=== PATIENT | male | born 1945 | race Caucasian/White ===

== ENCOUNTER → 2016-06-20 | Outpatient (CLI) | payer MEDICARE ==
--- NOTE | 2016-06-20 09:34 | REP ---
Clinical: Preoperative assessment . Comparison: 06/17/2010 . Technique: PA and lateral. Findings: The mediastinum and cardiac silhouette are stable and within normal limits. The lung oneil demonstrate mild chronic basilar changes without acute consolidation, effusion, or pneumothorax. The skeletal structures are intact and normal. Impression: 1. No acute cardiopulmonary process. Signed by Jaden Ridley MD 06/20/2016 09:27 A
[2016-06-20 09:50] LABS: COLLAGEN ADP 128 SECONDS (56-103)
[2016-06-20 09:56] LABS: ALBUMIN 3.9 GM/DL (3.2-5.2); ALBUMIN/GLOBULIN RATIO 1.18 (1.00-1.93); ALKALINE PHOSPHATASE 53 U/L (45-117); ALT/SGPT 29 U/L (12-78); ANION GAP 9 MEQ/L (8-16); AST/SGOT 21 U/L (15-37); BILIRUBIN,TOTAL 0.8 MG/DL (0.2-1.0); BLOOD UREA NITROGEN 12 MG/DL (7-18); CALCIUM LEVEL 9.1 MG/DL (8.8-10.2); CARBON DIOXIDE LEVEL 28 MEQ/L (21-32); CHLORIDE LEVEL 104 MEQ/L (98-107); CREATININE FOR GFR 0.83 MG/DL (0.70-1.30); GLOMERULAR FILTRATION RATE > 60.0 (>42); GLUCOSE, FASTING 94 MG/DL (83-110); POTASSIUM SERUM 4.3 MEQ/L (3.5-5.1); SODIUM LEVEL 141 MEQ/L (136-145); TOTAL PROTEIN 7.2 GM/DL (6.4-8.2)
--- NOTE | 2016-06-20 16:29 | ECGEPIP ---
Stationary ECG Study [facility] Test Date: 2016-06-20 Pat Name: KOTA MONTGOMERY Department: Room: - Gender: M Channel Rebuilder: LV : 1945 Requested By: LIDYA Benites Order Number: [id number] Reading MD: Pavan Mclaughlin Measurements Intervals [place] Rate: 56 P: 19 FL: 171 QRS: -3 QRSD: 106 T: 25 QT: 419 QTc: 406 Interpretive Statements SINUS BRADYCARDIA NO PRIOR TRACING FOR COMPARISON Electronically Signed On 06-20-2016 16:29:40 EST by Pavan Mclaughlin
== END ==
LOC: M LAB 08:29
PROVIDERS: ATTEND Ophthalmology
DX: H25.11 Age-related nuclear cataract, right eye (principal)

== ENCOUNTER → 2016-07-07 | Day surgery (SDC) | payer MEDICARE ==
--- NOTE | 2016-06-29 21:31 | CR ---
DATE OF CONSULTATION: 06/27/[address] Nickerson: Thank you for asking me to see Mr. Seth Carlson in consultation prior to his left cataract surgery scheduled for 07/07/2016. As you know, Mr. Seth Carlson is a 70-year-old gentleman, past medical history of hypertension, asthma, osteoarthritis (OA), degenerative joint disease (DJD), who reports he has been in his usual state of health. Patient reports asthma has been slightly worse with the cold weather, as it usually is. He is using his Symbicort twice a day. Has not felt that he has required the use of the ProAir. He denies any fevers or chills. Denies any congestion. Allergy symptoms have been good. He has not required the use of his Flonase, cetirizine, or saline. Patient reports severe left ankle pain after stepping wrong on his ankle and twisting. He saw Dr. Luis. He was ready to proceed with surgical intervention, but Dr. Luis felt he should seek treatment elsewhere because of the complexity of the surgery required. He has been referred into Dr. Ortiz 07/11/2016 and has had some improvement in his symptoms, such that he is no longer needing to use a cane. Patient also reports some difficulties with right shoulder pain. He has had previous problems with left shoulder pain, which was ultimately felt to be related to his back and neck. He reports that a week before , he was golfing when he had sudden onset of acute pain. It has improved at this point, and he would like to hold off on further evaluation/treatment at this point. Patient reports significant decline in his right eye vision over the last 6 months while he has been waiting for cataract surgery. He is eager to proceed. Patient also reports concerns about family history of Alzheimer's. 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 REVIEW OF SYSTEMS: Otherwise, negative. Denies any fevers or chills, chest pain, or shortness of breath. PAST MEDICAL HISTORY: 1. Hypertension, diet controlled. 2. Hyperlipidemia. 3. Allergic rhinitis. 4. Asthma. Last spirometry 12/31 essentially normal. 5. Hypothyroidism. 6. Dyslipidemia. 7. Right thumb amputation. 8. Colonic tubular adenoma, status post transanal resection 03/2001 with last colonoscopy 07/19/2012. No pathology except diverticulosis. 9. OA/DJD, status post right total knee arthroplasty (TKA) times two with partial knee replacement 06/2007. Advanced left ankle surgery, full joint replacement recommended. 10. Osteopenia 2007 with thoracic compression fracture. 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 12. Spermatocele right testis 1.9 x 1.3 cm per ultrasound 10/01. MEDICATIONS: - baby aspirin daily - calcium plus magnesium daily - cetirizine 10 mg as needed - fluticasone as needed - glucosamine chondroitin daily - krill oil daily - levothyroxine 175 mcg daily - multivitamin daily - ProAir two puffs four times a day as needed - saline spray as needed - Symbicort two puff twice a day as needed - vitamin D3, 1000 international units daily - vitamin E daily DRUG ALLERGIES: None. 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 Never smoked. Alcohol 5-6 beers a week. FAMILY HISTORY: Father had lymphoma, Alzheimer's disease. Paternal aunt and uncle had Alzheimer's disease. His mother secondary to cancer. A brother has diabetes. A grandfather had lung cancer. PHYSICAL EXAM: No acute distress. VITAL SIGNS: Are weight 180, which is stable, with a body mass index (BMI) of 28. Blood pressure 148/88, recheck 138/84. His pulse is 80. His oxygen saturations have been 98% in this office in the last year. HEENT EXAM: Head is normocephalic. Neck is supple. Pupils equal, reactive to light. Extraocular movements are intact. No thyromegaly, jugular venous distention (JVD), or cervical lymphadenopathy. He does wear eyeglasses. RESPIRATORY: Clear to auscultation. Resonant to percussion. CARDIOVASCULAR: Regular rate, rhythm. He is bradycardic. He has no additional beats. No murmurs, rubs, or gallops. ABDOMEN: Soft, nontender. No hepatosplenomegaly. EXTREMITIES: Partial amputation right thumb. Well-healed right knee incision. OA changes, particularly at the distal interphalangeal (DIP) joints. Bilateral ankle bony enlargement. OA changes at the DIP joints. GENITOURINARY (): Is deferred to urology. DERMATOLOGIC: Multiple small matthews angiomas. LABORATORY DATA: Chest x-ray 06/20/2016 [facility] ([facility]) shows no acute cardiopulmonary process. EKG 06/20/2016 shows sinus bradycardia, rate of 56, axis of -3 degrees, normal R wave progression, some repolarization changes, borderline left atrial enlargement (LAE). No ventricular hypertrophy. No pathologic Q waves. No significant change compared to EKG 04/04/2016. Laboratory data [facility] 06/20/2016 shows a normal hemoglobin of 14.7. Normal med profile, lipid panel. Elevated platelet function studies consistent with possible drug effect, and patient admits he was doing krill oil, vitamin E, aspirin, glucosamine chondroitin. IMPRESSION: Mr. Seth Carlson, 70-year-old gentleman with cardiovascular risk factors positive for hypertension, hyperlipidemia, age, has no signs or symptoms indicative of cardiovascular ischemia, and is felt to be optimized and at low risk for cardiovascular complications from the proposed surgical intervention, which can be further minimized by the followin. Hypertension, diet controlled. Commended for efforts. Encouraged to continue diet, exercise, salt restriction. 2. Asthma. In an attempt to avoid asthma exacerbation in the winter, I have asked him to do his ProAir twice a day before Symbicort until surgery. He is up to date with flu shot. Encouraged patient to take ProAir and Symbicort morning of surgery. 3. Allergic rhinitis, clinically asymptomatic. Encouraged use of as-needed medications as needed. 4. Osteopenia. Hold calcium and D morning of surgery. 5. Adenomatous colonic polyps. Up to date with colonoscopy. Clinically asymptomatic. 6. Testicular microlithiasis. Encouraged followup with urology. 7. Hypothyroid. Last thyroid-stimulating hormone (TSH) adequate. Continue Levoxyl, including morning of surgery with a sip of water. 8. Abnormal platelet function studies. Expect related to vitamin E, aspirin, krill. These are on hold until his surgery. No need for further evaluation/treatment. 9. Family history Alzheimer's. Conservative advice given. 10. Osteoarthritis/degenerative joint disease. Patient will see Dr. Ortiz regarding left ankle pain 07/11/2016. Will forward notes to me. Patient has new onset right shoulder pain. He would like to hold off further evaluation/treatment at this point. Thank you very much for this consultation. Please call with questions or concerns.
[~2016-07-07] VITALS: Ht 172.7 cm; Wt 79.4 kg
[~2016-07-07] MED LIST: ACETYLCHOLINE OPHTH SOLN 1% 2ML As Ordered ONE; ACETYLCHOLINE OPHTH SOLN 1% 2ML XX ONE; BALANCED SALT IRRIGATION SOLUTION 500ML BAG (FOR OR EYE MACHINE) As Ordered ONE; BALANCED SALT IRRIGATION SOLUTION 500ML BAG (FOR OR EYE MACHINE) XX ONE; CEFUROXIME 1MG/0.1ML INTRACAMERAL INJ As Ordered ONE; CEFUROXIME 1MG/0.1ML INTRACAMERAL INJ XX ONE; HEALON DUET (HEALON 10MG/ML 0.55ML & HEALON ENDOCOAT 30MG/ML 0.85ML) As Ordered ONE; LEVO25TA5 PO; LIDOCAINE 0.75%/EPINEPHRINE 0.025% IN BSS 1ML SYR INTRACAMERAL (OR ONLY) As Ordered ONE; LIDOCAINE 0.75%/EPINEPHRINE 0.025% IN BSS 1ML SYR INTRACAMERAL (OR ONLY) XX ONE; LIDOCAINE 4% INJ 5 ML AMP OU ONE; MIDAZOLAM INJ 2 MG/2 ML VIAL (J2250) As Ordered ONE; OFLOXACIN 0.3 % (OCUFLOX) OPTH SOL 5ML OD ONE; OFLOXACIN 0.3 % (OCUFLOX) OPTH SOL 5ML XX ONE; PHENYLEPHRINE 2.5% OPHTH SOL 2ML OD ONE; PHENYLEPHRINE 2.5% OPHTH SOL 2ML XX ONE; POVIDONE-IODINE 5% OPHTH PREP SOL 30ML As Ordered ONE; PROPARACAINE 0.5% OPHTH SOL 15ML OD ONE; PROPARACAINE 0.5% OPHTH SOL 15ML XX ONE; TOBRADEX OPHTH OINT 3.5 GM As Ordered ONE; TROPICAMIDE 1% OPHTH SOLN 2 ML OD ONE; TROPICAMIDE 1% OPHTH SOLN 2 ML XX ONE; fentaNYL 100 MCG/2 ML INJECTION (J3010) As Ordered ONE
[2016-07-07 13:05] VITALS: BP 174/96
--- NOTE | 2016-07-08 07:33 | RO ---
DATE OF PROCEDURE: 07/07/2016 PREOPERATIVE DIAGNOSIS: Visually significant nuclear sclerotic cataract right eye. POSTOPERATIVE DIAGNOSIS: Visually significant nuclear sclerotic cataract right eye. PROCEDURE: Cataract extraction with use of phacoemulsification and placement of intraocular lens 13.5 diopter right eye. SURGEON: Eduardo Nickerson DO CROWNING HAMMER OPERATOR: ANESTHESIA: Local with monitored anesthesia care (MAC). COMPLICATIONS: None. POSTOPERATIVE CONDITION: Stable. INDICATION FOR SURGERY: Blurred vision right eye affecting patient's activities of daily living. DESCRIPTION OF PROCEDURE: The patient was seen in the preoperative area and properly identified. The correct operative eye was identified and marked. Attention was turned to that eye. The patient received topical antibiotics in the preoperative area. The patient then received topical dilating drops consisting of tropicamide and phenylephrine. The patient was then transferred to the operating room. The correct side was reidentified. The patient received topical anesthetics and antibiotics on the surface of the eye. The eye was prepped and draped in a sterile fashion. The upper and lower eyelids were isolated with Tegaderm tape, and the lids were held open with an adjustable speculum. Using a sideport blade, a paracentesis incision was made. Intraocular preservative-free lidocaine was then injected into the anterior chamber. Viscoelastic was then injected into the anterior chamber through the paracentesis. Using a 2.65 mm sharp-tipped keratome, the anterior chamber was entered via a temporal clear corneal incision. A continuous curvilinear capsulorrhexis was created with the aid of a 26-gauge cystotome and Utrata forceps. Hydrodissection was performed with balanced salt solution (BSS) on a blunt cannula until the nucleus was freely mobile. The crystalline lens was phacoemulsified and aspirated. Additional cohesive viscoelastic was placed into the capsular bag to deepen it. A 13.5 diopter lens was placed into the capsular bag and confirmed by visualizing the continuous curvilinear capsulorrhexis. Additional irrigation and aspiration was used to remove cortical material and remaining viscoelastic. The clear corneal incision was hydrated with BSS on a blunt cannula. The lens was well positioned. The incisions were then tested for leaks and found to be negative. The eye was then palpated for appropriate pressure and adjusted accordingly with BSS. Several drops of antibiotics and Iopidine were placed in the eye. The eyelid speculum was then carefully removed. Maxitrol ointment was placed in the eye. An eye patch and shield were then secured over the eye. The patient tolerated the procedure well and was discharged to the recovery unit in a stable condition. MOISES
== END | disposition home or self-care (01) ==
LOC: M SDC 10:34
PROVIDERS: ATTEND Ophthalmology
DX: H25.11 Age-related nuclear cataract, right eye (principal); I10 Essential (primary) hypertension; J45.909 Unspecified asthma, uncomplicated; E78.4 Other hyperlipidemia; E03.9 Hypothyroidism, unspecified; Z79.82 Long term (current) use of aspirin; Z79.899 Other long term (current) drug therapy; M94.9 Disorder of cartilage, unspecified
CPT/HCPCS: 36415; 66984; 85576; J2250; J3010; V2632

== ENCOUNTER 2016-07-21 06:00 | Day surgery (SDC) | payer MEDICARE ==
[~2016-07-21] VITALS: Ht 172.7 cm; Wt 79.0 kg
[~2016-07-21 06:00] MED LIST changes: -ACETYLCHOLINE OPHTH SOLN 1% 2ML As Ordered ONE; -ACETYLCHOLINE OPHTH SOLN 1% 2ML XX ONE; -BALANCED SALT IRRIGATION SOLUTION 500ML BAG (FOR OR EYE MACHINE) As Ordered ONE; -BALANCED SALT IRRIGATION SOLUTION 500ML BAG (FOR OR EYE MACHINE) XX ONE; -CEFUROXIME 1MG/0.1ML INTRACAMERAL INJ As Ordered ONE; -CEFUROXIME 1MG/0.1ML INTRACAMERAL INJ XX ONE; -HEALON DUET (HEALON 10MG/ML 0.55ML & HEALON ENDOCOAT 30MG/ML 0.85ML) As Ordered ONE; -LIDOCAINE 0.75%/EPINEPHRINE 0.025% IN BSS 1ML SYR INTRACAMERAL (OR ONLY) As Ordered ONE; -LIDOCAINE 0.75%/EPINEPHRINE 0.025% IN BSS 1ML SYR INTRACAMERAL (OR ONLY) XX ONE; -LIDOCAINE 4% INJ 5 ML AMP OU ONE; -MIDAZOLAM INJ 2 MG/2 ML VIAL (J2250) As Ordered ONE; -OFLOXACIN 0.3 % (OCUFLOX) OPTH SOL 5ML OD ONE; -OFLOXACIN 0.3 % (OCUFLOX) OPTH SOL 5ML XX ONE; -PHENYLEPHRINE 2.5% OPHTH SOL 2ML OD ONE; -PHENYLEPHRINE 2.5% OPHTH SOL 2ML XX ONE; -POVIDONE-IODINE 5% OPHTH PREP SOL 30ML As Ordered ONE; -PROPARACAINE 0.5% OPHTH SOL 15ML OD ONE; -PROPARACAINE 0.5% OPHTH SOL 15ML XX ONE; -TOBRADEX OPHTH OINT 3.5 GM As Ordered ONE; -TROPICAMIDE 1% OPHTH SOLN 2 ML OD ONE; -TROPICAMIDE 1% OPHTH SOLN 2 ML XX ONE; -fentaNYL 100 MCG/2 ML INJECTION (J3010) As Ordered ONE
[2016-07-21] MEDS ORDERED: ACETYLCHOLINE OPHTH SOLN 1% 2ML As Ordered ONE (06:29)
[2016-07-21] MEDS ORDERED: LIDOCAINE 4% INJ 5 ML AMP As Ordered ONE (06:29)
[2016-07-21] MEDS ORDERED: POVIDONE-IODINE 5% OPHTH PREP SOL 30ML As Ordered ONE (06:29)
[2016-07-21] MEDS ORDERED: TOBRADEX OPHTH OINT 3.5 GM As Ordered ONE (06:29)
[2016-07-21] MEDS ORDERED: CEFUROXIME 1MG/0.1ML INTRACAMERAL INJ As Ordered ONE (06:30)
[2016-07-21] MEDS ORDERED: HEALON DUET (HEALON 10MG/ML 0.55ML & HEALON ENDOCOAT 30MG/ML 0.85ML) As Ordered ONE (06:30)
[2016-07-21] MEDS ORDERED: BALANCED SALT IRRIGATION SOLUTION 500ML BAG (FOR OR EYE MACHINE) As Ordered ONE (06:30)
[2016-07-21] MEDS ORDERED: LIDOCAINE 0.75%/EPINEPHRINE 0.025% IN BSS 1ML SYR INTRACAMERAL (OR ONLY) As Ordered ONE (06:30)
[2016-07-21] MEDS ORDERED: TETRACAINE 0.5% OPHTH SOLN 4ML As Ordered ONE (06:32)
[2016-07-21] MEDS ORDERED: GLUC1CAP9 PO (06:46)
[2016-07-21] MEDS ORDERED: MULTTAB50 PO (06:46)
[2016-07-21] MEDS ORDERED: SYMB16INH INH (06:46)
[2016-07-21] MEDS: D5W/0.2% SODIUM CHLORIDE 250 ML IV SCH ×2 (06:53→07:53)
[2016-07-21] MEDS ORDERED: TROPICAMIDE 1% OPHTH SOLN 2 ML OS ONE (07:00)
[2016-07-21] MEDS ORDERED: OFLOXACIN 0.3 % (OCUFLOX) OPTH SOL 5ML OS ONE (07:00)
[2016-07-21] MEDS ORDERED: PHENYLEPHRINE 2.5% OPHTH SOL 2ML OS ONE (07:00)
[2016-07-21] MEDS ORDERED: PROPARACAINE 0.5% OPHTH SOL 15ML OS ONE (07:00)
[2016-07-21] MEDS ORDERED: MIDAZOLAM INJ 2 MG/2 ML VIAL (J2250) As Ordered ONE (07:05)
[2016-07-21] MEDS ORDERED: fentaNYL 100 MCG/2 ML INJECTION (J3010) As Ordered ONE (07:06)
[2016-07-21] MEDS ORDERED: ACETYLCHOLINE OPHTH SOLN 1% 2ML XX ONE (07:49)
[2016-07-21] MEDS ORDERED: CEFUROXIME 1MG/0.1ML INTRACAMERAL INJ ICAM ONE (07:49)
[2016-07-21] MEDS ORDERED: LIDOCAINE 4% INJ 5 ML AMP XX ONE (07:49)
[2016-07-21] MEDS ORDERED: HEALON DUET (HEALON 10MG/ML 0.55ML & HEALON ENDOCOAT 30MG/ML 0.85ML) XX ONE (07:49)
[2016-07-21] MEDS ORDERED: BALANCED SALT IRRIGATION SOL 500ML GLASS BOTTLE (FOR OR EYE COMPOUND) IR ONE (07:49)
[2016-07-21] MEDS ORDERED: TOBRADEX OPHTH OINT 3.5 GM XX ONE (07:49)
[2016-07-21 08:40] VITALS: BP 130/80
[2016-07-21] MEDS ORDERED: LIDOCAINE 0.75%/EPINEPHRINE 0.025% IN BSS 1ML SYR INTRACAMERAL (OR ONLY) ICAM ONE (14:03)
--- NOTE | 2016-07-21 20:29 | RO ---
DATE OF PROCEDURE: 07/21/2016 PREOPERATIVE DIAGNOSIS: Visually significant nuclear sclerotic cataract left eye. POSTOPERATIVE DIAGNOSIS: Visually significant nuclear sclerotic cataract left eye. PROCEDURE: Cataract extraction with use of phacoemulsification and placement of intraocular lens ZCB00 14.0 diopters, left eye. SURGEON: Eduardo Nickerson DO DIE LAY OUT WORKER: ANESTHESIA: Local with monitored anesthesia care (MAC). COMPLICATIONS: None. POSTOPERATIVE CONDITION: Stable. INDICATION FOR SURGERY: Blurred vision left eye affecting patient's activities of daily living. DESCRIPTION OF PROCEDURE: The patient was seen in the preoperative area and properly identified. The correct operative eye was identified and marked. Attention was turned to that eye. The patient received topical antibiotics in the preoperative area. The patient then received topical dilating drops consisting of tropicamide and phenylephrine. The patient was then transferred to the operating room. The correct side was reidentified. The patient received topical anesthetics and antibiotics on the surface of the eye. The eye was prepped and draped in a sterile fashion. The upper and lower eyelids were isolated with Tegaderm tape, and the lids were held open with an adjustable speculum. Using a sideport blade, a paracentesis incision was made. Intraocular preservative-free Shugarcaine (lidocaine with preservative free Epinephrine, compounded) was then injected into the anterior chamber. Viscoelastic was then injected into the anterior chamber through the paracentesis. Using a 2.65 mm sharp-tipped keratome, the anterior chamber was entered via a temporal clear corneal incision. A continuous curvilinear capsulorrhexis was created with the aid of a 26-gauge cystotome and Utrata forceps. Hydrodissection was performed with balanced salt solution (BSS) on a blunt cannula until the nucleus was freely mobile. The crystalline lens was phacoemulsified and aspirated. Additional cohesive viscoelastic was placed into the capsular bag to deepen it. A ZCB00 14.0 diopter lens was placed into the capsular bag and confirmed by visualizing the continuous curvilinear capsulorrhexis. Additional irrigation and aspiration was used to remove cortical material and remaining viscoelastic. The clear corneal incision was hydrated with BSS on a blunt cannula. The lens was well positioned. The incisions were then tested for leaks and found to be negative. The eye was then palpated for appropriate pressure and adjusted accordingly with BSS. The eyelid speculum was then carefully removed. Tobradex ointment was placed in the eye. An eye patch and shield were then secured over the eye. The patient tolerated the procedure well and was discharged to the recovery unit in a stable condition. MOISES
== END 2016-07-21 08:30 | disposition home or self-care (01) ==
LOC: M SDC 06:00
PROVIDERS: ATTEND Ophthalmology
DX: H25.12 Age-related nuclear cataract, left eye (principal); E03.9 Hypothyroidism, unspecified; J45.909 Unspecified asthma, uncomplicated; Z79.899 Other long term (current) drug therapy
CPT/HCPCS: 66984; J2250; J3010; V2632

== ENCOUNTER 2017-01-13 22:11 | Emergency (ER) | payer MEDICARE ==
[~2017-01-13] VITALS: Ht 170.2 cm; Wt 79.5 kg
[~2017-01-13 22:11] MED LIST changes: +GLUC1CAP9 PO; +MULTTAB50 PO; +SYMB16INH INH
[2017-01-13] MEDS ORDERED: COLA100C5 PO (22:37)
[2017-01-13] MEDS ORDERED: OXYC1TAB23 PO (22:37)
[2017-01-13] MEDS ORDERED: MIRA3350 PO (22:37)
[2017-01-14] MEDS ORDERED: LIDOCAINE 1% MDV 20ML VIAL As Ordered ONE (03:08)
[2017-01-14] MEDS ORDERED: LIDOCAINE 1% MDV 20ML VIAL SC SCH (03:15)
[2017-01-14] MEDS ORDERED: LIDOCAINE 1% SDV INJ 30 ML VIAL SC SCH (03:15)
[2017-01-14 04:14] VITALS: BP 155/94
--- NOTE | 2017-01-14 08:22 | REP ---
REASON: Trauma. COMPARISON: None. There is dorsal dislocation of the proximal interphalangeal joint of the 4th digit. There is no evidence of an associated fracture. There is soft tissue swelling. Chronic change are seen throughout the hand. IMPRESSION: Findings involving the 4th digit as described above. Signed by Osmel Loyd DO 01/14/2017 10:37 A
--- NOTE | 2017-01-14 08:23 | REP ---
REASON: Post-reduction. COMPARISON: Earlier same date. The previously described dislocation of the proximal interphalangeal joint of the 4th digit has been reduced. There is no evidence of an associated fracture. There is soft tissue swelling. Signed by Osmel Loyd DO 01/14/2017 10:37 A
== END 2017-01-14 04:16 | disposition home or self-care (01) ==
LOC: M ED 22:11
DX: S63.255A Unspecified dislocation of left ring finger, initial encounter (principal); W19.XXXA Unspecified fall, initial encounter; Y92.9 Unspecified place or not applicable; Y93.9 Activity, unspecified; Y99.9 Unspecified external cause status; I10 Essential (primary) hypertension; E03.9 Hypothyroidism, unspecified; Z79.899 Other long term (current) drug therapy

== ENCOUNTER → 2017-04-18 | Outpatient (CLI) | payer MEDICARE ==
[~2017-04-18] MED LIST changes: +COLA100C5 PO; +MIRA3350 PO; +OXYC1TAB23 PO
--- NOTE | 2017-04-18 14:00 | REP ---
TRIPLE BONE SCAN OF THE RIBS: Following the intravenous administration of 21.8 mCi of technetium 99m MDP, patient's chest is imaged in the anterior and posterior projections. There is no abnormal blood flow to any portion of the chest. Immediate blood pool and 2 hour delayed image are performed of the chest in the anterior, posterior, both anterior and posterior oblique and both lateral projections. There is no abnormal blood pooling. Delayed images show arthritic uptake at the shoulders bilaterally as well as the sternoclavicular joints and sternomanubrial joint. There is mild diffuse arthritic uptake in the spine. There is no compelling scintigraphic evidence of rib fracture or lesion. Signed by Swapnil Ma MD 04/18/2017 05:20 P
== END ==
LOC: M RAD 10:13
PROVIDERS: ATTEND Orthopaedic Surgery
DX: M47.894 Other spondylosis, thoracic region (principal); M19.011 Primary osteoarthritis, right shoulder; M25.511 Pain in right shoulder
CPT/HCPCS: 78315; A9503

== ENCOUNTER 2018-08-16 07:57 | Day surgery (SDC) | payer MEDICARE ==
[~2018-08-16] VITALS: Ht 172.7 cm; Wt 80.7 kg
[~2018-08-16 07:57] MED LIST changes: +ASPI1TAB PO; +FLON1SPR; +KRIL300C PO; +MAGN200T PO; +MULT1TAB10 PO; +NS 1,000 ML IV ONE; +VENTAER INH; +VITA100067 PO; +ZYRT10CA5 PO; +[UNRECOGNIZED DRUG - OTHER] PO
[2018-08-16] MEDS ORDERED: PROPOFOL 200 MG/20 ML VIAL As Ordered ONE (08:56)
--- NOTE | 2018-08-16 09:12 | ROOR ---
Patient Name: Seht Carlson Procedure Date: 08/16/2018 8:51 AM Date of : 1945 Age: 72 Room: [facility] Gender: Male Note Status: Finalized Procedure: Colonoscopy Indications: High risk colon cancer surveillance: Personal history of colonic polyps Providers: Jose Luis Rodríguez Jr, MD Referring MD: Shyanne HARRINGTON MD Requesting Provider: Medicines: Propofol per Anesthesia Complications: No immediate complications. Procedure: Pre-Anesthesia Assessment: - Prior to the procedure, a History and Physical was performed, and patient medications and allergies were reviewed. The patient is competent. The risks and benefits of the procedure and the sedation options and risks were discussed with the patient. All questions were answered and informed consent was obtained. Patient identification and proposed procedure were verified by the physician and the nurse in the pre-procedure area and in the procedure room. Mental Status Examination: alert and oriented. Airway Examination: normal oropharyngeal airway and neck mobility. Respiratory Examination: clear to auscultation. CV Examination: normal. ASA Grade Assessment: II - A patient with mild systemic disease. After reviewing the risks and benefits, the patient was deemed in satisfactory condition to undergo the procedure. The anesthesia plan was to use moderate sedation / analgesia (conscious sedation). Immediately prior to administration of medications, the patient was re-assessed for adequacy to receive sedatives. The heart rate, respiratory rate, oxygen saturations, blood pressure, adequacy of pulmonary ventilation, and response to care were monitored throughout the procedure. The physical status of the patient was re-assessed after the procedure. The Colonoscope was introduced through the anus and advanced to the cecum, identified by appendiceal orifice and ileocecal valve. The colonoscopy was performed without difficulty. The patient tolerated the procedure well. The quality of the bowel preparation was adequate. Findings: The rectum, ascending colon, cecum, appendiceal orifice and ileocecal valve appeared normal. Multiple small and large-mouthed diverticula were found in the sigmoid colon, descending colon and transverse colon. Non-bleeding external and internal hemorrhoids were found during retroflexion and during endoscopy. The hemorrhoids were moderate, Grade II (internal hemorrhoids that prolapse but reduce spontaneously) and Grade III (internal hemorrhoids that prolapse but require manual reduction). Impression: - The rectum, ascending colon, cecum, appendiceal orifice and ileocecal valve are normal. - Diverticulosis in the sigmoid colon, in the descending colon and in the transverse colon. - Non-bleeding external and internal hemorrhoids. - No specimens collected. Recommendation: - Repeat colonoscopy in 3 years for surveillance. Jose Luis Rodríguez MD Jose Luis Rodríguez Jr, MD 08/16/2018 9:12:45 AM This report has been signed electronically. Number of Addenda: 0 Note Initiated On: 08/16/2018 8:51 AM Estimated Blood Loss: Estimated blood loss: none.
[2018-08-16 09:35] VITALS: BP 136/81
== END 2018-08-16 09:42 | disposition home or self-care (01) ==
LOC: M OPP 07:57
PROVIDERS: ATTEND Surgery
DX: Z86.010 Personal history of colon polyps (principal); K57.30 Diverticulosis of large intestine without perforation or abscess without bleeding; K64.1 Second degree hemorrhoids; K64.2 Third degree hemorrhoids; E78.00 Pure hypercholesterolemia, unspecified; Z79.82 Long term (current) use of aspirin; Z79.899 Other long term (current) drug therapy

== ENCOUNTER → 2018-08-21 | Outpatient (REF) | payer MEDICARE ==
[~2018-08-21] MED LIST changes: -NS 1,000 ML IV ONE
== END ==
LOC: M LAB REF 10:59
PROVIDERS: ATTEND Internal Medicine
DX: M25.511 Pain in right shoulder (principal); R79.82 Elevated C-reactive protein (CRP)

== ENCOUNTER → 2019-03-13 | Outpatient (CLI) | payer MEDICARE ==
[~2019-03-13] MED LIST changes: -ASPI1TAB PO; +ASPI81TA26 PO
--- NOTE | 2019-03-14 19:20 | SLEEPHOME ---
DATE OF PROCEDURE: 03/13/2019 ORDERED BY: Marj Lin Diagnostic home sleep testing was performed for evaluation of this patient with excessive somnolence and snoring due to concern for the obstructive sleep apnea syndrome. For testing a nocturnal T3 respiratory monitoring device was used. Continuous record was made of pulse, oxygen saturation, airflow, chest, abdominal strain and body position. 10 hours and 59 minutes of data were reviewed. There were 6 hours and 39 minutes marked as time in bed. During the interval marked time in bed, there were 142 respiratory events identified of 10 seconds in duration or greater for a respiratory event index of 21.3. The events were primarily obstructive. Baseline pulse rate 54, pulse rate ranged 46-89. Baseline saturation was 93%. Lowest oxygen saturation 86%. Testing was performed in both the supine and nonsupine positions. IMPRESSION: Abnormal home sleep testing with repetitive respiratory events and oxygen desaturations to 86% with a respiratory event index of 21.3 is consistent with the obstructive sleep apnea syndrome. RECOMMENDATIONS: The patient should be encouraged to undergo a formal sleep evaluation.
== END ==
LOC: M SLEEP HO 11:29
PROVIDERS: ATTEND Nurse Practitioner Adult Health
DX: G47.30 Sleep apnea, unspecified (principal); R06.83 Snoring; R40.0 Somnolence

== ENCOUNTER → 2019-05-01 | Outpatient (CLI) | payer MEDICARE ==
--- NOTE | 2019-05-02 19:11 | SLEEPCENT ---
DATE OF PROCEDURE: 05/01/2019 ORDERED BY: CHERIE Casarez Nocturnal polysomnography was performed for the titration of pressure therapy in this patient with obstructive sleep apnea syndrome by clinical diagnosis, confirmed by home testing, revealing a respiratory event index of 21.3. For testing the patient was fit with a ResMed AirFit F30 full face mask of medium size, 4 cm of water pressure were applied to the circuit and the lights were extinguished. 7 hours and 7 minutes of data were reviewed. There were 353 minutes of sleep identified. Sleep latency was short at 6.5 minutes. Rapid eye movement (REM) latency was normal at 72 minutes. Sleep architecture was good with four REM cycles. Overall sleep efficiency was 83.6%. The patient's electrocardiogram showed a sinus rhythm with an average heart rate of 56 beats per minute. EEG showed normal waveforms for awake and sleep. Respiratory events were fully palliated with continuous positive airway pressure (CPAP) at a pressure of +10 with some significant limb activity, particularly early in the study and limb movement arousal index was 20.7. IMPRESSION: 1. Obstructive sleep apnea syndrome (G47.33). 2. Possible periodic limb movement disorder (G47.61). RECOMMENDATIONS: Nightly use of pressure therapy at 10 cm of water pressure should be sufficient to address the patient's obstructive respiratory events. Should sleep symptoms persist, interventions to reduce the frequency of arousal from limb activity may also be helpful.
== END ==
LOC: M SLEEP 20:07
PROVIDERS: ATTEND Nurse Practitioner Adult Health
DX: G47.33 Obstructive sleep apnea (adult) (pediatric) (principal); G47.61 Periodic limb movement disorder

== ENCOUNTER → 2020-06-10 | Outpatient (REF) | payer MEDICARE ==
[2020-06-10 12:59] LABS: APPEARANCE, URINE CLEAR (CLEAR); BACTERIA, URINE AUTO NEGATIVE (NEGATIVE); BILIRUBIN, URINE AUTO NEGATIVE (NEGATIVE); BLOOD, URINE BLOOD NEGATIVE (NEGATIVE); COLOR, URINE YELLOW (YELLOW); GLUCOSE, URINE (UA) AUTO NEGATIVE (NEGATIVE); KETONE, URINE AUTO NEGATIVE (NEGATIVE); LEUKOCYTE ESTERASE, URINE AUTO NEGATIVE (NEGATIVE); NITRITE, URINE AUTO NEGATIVE (NEGATIVE); PROTEIN, URINE AUTO NEGATIVE (NEGATIVE); RBC, URINE AUTO 0 /HPF (0-3); SPECIFIC GRAVITY URINE AUTO 1.008 (1.002-1.035); SQUAMOUS EPITHELIAL CELL UR AU 0 /HPF (0-6); UROBILINOGEN, URINE AUTO 0.2 mg/dL (0.0-2.0); WBC, URINE AUTO 0 /HPF (0-3)
== END ==
LOC: M LAB REF 12:46
PROVIDERS: ATTEND Internal Medicine
DX: Z01.818 Encounter for other preprocedural examination (principal)

== ENCOUNTER → 2020-08-18 | Outpatient (CLI) | payer SELFPAY | LOC: M LABSMTC 14:16 | PROVIDERS: ATTEND Pediatrics | DX: Z11.52 Encounter for screening for COVID-19 (principal) ==

== ENCOUNTER → 2020-10-19 | Outpatient (CLI) | payer MEDICARE ==
--- NOTE | 2020-10-19 10:24 | REP ---
INDICATION: ABNORMAL FINDING OF LUNG FIELD. COMPARISON: Chest radiographs 06/10/2020. TECHNIQUE: CT chest performed without the use of intravenous contrast. Sagittal and coronal reconstruction images are performed. FINDINGS: Lungs: There is focal fibrotic scarring in the lingula. There is scattered fibrotic scarring throughout the right lung. There is mild fibrotic scarring inferiorly in the posterior left lower lobe. Mediastinum: No gross adenopathy. [place]: No gross adenopathy. Axilla: No gross adenopathy. Pleura: No effusion. Heart: Not enlarged. Thoracic aorta: No aneurysm. Upper abdominal structures: There is a large hiatal hernia. There is cortical scarring of the right kidney. There are vascular calcifications in the right kidney. Visualized osseous structures: There are degenerative changes of the spine without compression deformity. IMPRESSION: Scattered bilateral fibrotic scarring as discussed above with no focal nodule or infiltrate. Large hiatal hernia. <Electronically signed by Swapnil Ma > 10/19/20 1027
== END ==
LOC: M RAD 09:47
PROVIDERS: ATTEND Nurse Practitioner Adult Health
DX: R91.8 Other nonspecific abnormal finding of lung field (principal); K44.9 Diaphragmatic hernia without obstruction or gangrene

== ENCOUNTER → 2020-11-10 | Outpatient (REF) | payer MEDICARE | LOC: M LAB REF 16:16 | PROVIDERS: ATTEND Internal Medicine | DX: I82.4Z2 Acute embolism and thrombosis of unspecified deep veins of left distal lower extremity (principal) ==

== ENCOUNTER → 2020-11-12 | Outpatient (REF) | payer MEDICARE | LOC: M LAB REF 16:40 | PROVIDERS: ATTEND Internal Medicine | DX: I26.99 Other pulmonary embolism without acute cor pulmonale (principal) ==

== ENCOUNTER → 2020-12-31 | Outpatient (CLI) | payer MEDICARE ==
[~2020-12-31] MED LIST changes: +CALC600T61 PO; +D31000TA2 PO; +GLUC1CAP10 PO; +LEVO150T7 PO; +VITA-243 PO; +VITMTA PO; +XARE10TA PO
== END ==
LOC: M LABSMTC 09:49
PROVIDERS: ATTEND Anesthesiology
DX: Z01.812 Encounter for preprocedural laboratory examination (principal); Z20.822 Contact with and (suspected) exposure to COVID-19

== ENCOUNTER 2021-01-05 09:56 | Day surgery (SDC) | payer MEDICARE ==
[~2021-01-05] VITALS: Ht 172.7 cm; Wt 84.4 kg
[~2021-01-05 09:56] MED LIST changes: +LR 1,000 ML IV ONE; +ceFAZolin SOD 1 GM in D5W MINI-BAG PLUS 50 ML IV ONE
[2021-01-05] MEDS ORDERED: ONDANSETRON 4MG/2ML VIAL As Ordered ONE (10:09)
[2021-01-05] MEDS ORDERED: MIDAZOLAM INJ 2MG/2ML VIAL (J2250 PER 1MG) As Ordered ONE (10:09)
[2021-01-05] MEDS ORDERED: dexameTHASONE 4 MG/ML 1ML VIAL (J1100 PER 1MG) As Ordered ONE (10:09)
[2021-01-05] MEDS ORDERED: KETOROLAC 60MG 2ML VIAL As Ordered ONE (10:09)
[2021-01-05] MEDS ORDERED: fentaNYL 250 MCG/5 ML INJECTION (J3010) As Ordered ONE (10:09)
[2021-01-05] MEDS ORDERED: propofoL 200 MG/20 ML VIAL As Ordered ONE (10:10)
[2021-01-05] MEDS ORDERED: LIDOCAINE 2% 100MG/5ML SDV (FOR ANES.) As Ordered ONE (10:10)
[2021-01-05] MEDS ORDERED: ROCURONIUM BROMIDE 50 MG/5 ML VIAL As Ordered ONE ×2 (10:10→12:04)
[2021-01-05] MEDS ORDERED: BUPIVACAINE/EPIN 0.25% 30 ML VIAL As Ordered ONE (10:38)
[2021-01-05] MEDS ORDERED: ACETAMINOPHEN 1000MG 100ML IV BTL (OFIRMEV) (J0131 PER 10MG) As Ordered ONE (11:41)
[2021-01-05] MEDS ORDERED: ePHEDrine SULFATE 25 MG/5 ML(5MG/ML) SYRINGE As Ordered ONE (11:46)
[2021-01-05] MEDS ORDERED: SUGAMMADEX SODIUM 500 MG/5 ML VIAL (BRIDION) As Ordered ONE (11:47)
[2021-01-05] MEDS ORDERED: hydrALAZINE 20MG/ML 1ML VIAL (J0360 PER 20MG) As Ordered ONE (11:55)
[2021-01-05] MEDS ORDERED: LABETALOL 100MG/20ML VIAL As Ordered ONE (12:01)
[2021-01-05] MEDS ORDERED: LR 1,000 ML IV SCH (13:10)
[2021-01-05] MEDS ORDERED: fentaNYL 100 MCG/2 ML INJECTION (J3010) IV PRN (13:10)
[2021-01-05] MEDS ORDERED: ALBUTEROL SULFATE 2.5 MG/0.5 ML INH NEB SOLN INH ONE (13:10)
[2021-01-05] MEDS ORDERED: ONDANSETRON 4MG/2ML VIAL IV PRN (13:10)
[2021-01-05] MEDS ORDERED: PERCOCET 5MG/325MG TAB PO PRN (13:10)
[2021-01-05 14:35] VITALS: BP 147/75
--- NOTE | 2021-01-05 18:31 | RO ---
OPERATIVE NOTE DATE OF OPERATION: 01/05/2021 PREOPERATIVE DIAGNOSIS: Left inguinal hernia. POSTOPERATIVE DIAGNOSIS: Left inguinal hernia. PROCEDURE: Robotic-assisted laparoscopic left inguinal hernia repair with ProGrip mesh. SURGEON: Jose Luis Rodríguez M.D. PIANO MACHINE OPERATOR: SOMMER Miller. ESTIMATED BLOOD LOSS: Minimal. FLUIDS: Crystalloid. BRIEF PROCEDURE SUMMARY: The patient was brought to the operating room and was given general anesthesia. After adequate anesthesia and preoperative antibiotics were given, the patient was prepped and draped in the usual sterile fashion. Next, a supraumbilical incision was made with the skin knife. Blunt dissection was carried down to the fascia and Veress needle placed into the abdominal cavity and insufflated to 15 mm of pressure. The patient was placed in steep Trendelenburg position and two lateral 8-mm trocars were placed. Under direct visualization, what could be appreciated, the hernia was then reduced in the left inguinal area, and I could actually see a lipoma of the cord in this area as well. Thus, a peritoneal flap was created using monopolar cut scissors, first dissecting down to the medial aspect of the epigastrics and on Man's and down to the pubis, and then coming out onto the peritoneum laterally. The peritoneal flap was created using a combination of blunt and sharp dissection, as well as electrocautery. Eventually, this was able to be mobilized off of the cord structures. This hernia sac was actually extended down relatively far into the inguinal canal and eventually, after mobilizing this distally and then mobilizing it off of the cord structure where the vas go deep into the pelvis, there was still an obvious moderately large lipoma of the cord. It was mobilized distally and then had a relatively thick stalk that I sequentially went across after mobilizing this nicely proximally, and then cauterizing as I transected, coming across this, making sure that it was very redundant prior to its transection, and stayed a little bit high on the lipoma itself. Once this was transected, the ProGrip mesh was pressed into position after it was cut to the appropriate size, and then the 2-0 V-Loc was used to close the peritoneum overlying this. All trocars were removed under direct visualization. Then, 4-0 Vicryl was used to close all skin incisions. Steri-Strips and a dry sterile dressing were applied. The patient was awakened, extubated, and brought to the recovery room awake, alert, and hemodynamically stable. Sponge and needle counts were correct x2.
== END 2021-01-05 14:50 | disposition home or self-care (01) ==
LOC: M SDC 09:56
PROVIDERS: ATTEND Surgery
DX: K40.90 Unilateral inguinal hernia, without obstruction or gangrene, not specified as recurrent (principal); I10 Essential (primary) hypertension; J45.909 Unspecified asthma, uncomplicated; Z86.711 Personal history of pulmonary embolism; Z79.01 Long term (current) use of anticoagulants; E03.9 Hypothyroidism, unspecified; D64.9 Anemia, unspecified; K21.9 Gastro-esophageal reflux disease without esophagitis; K44.9 Diaphragmatic hernia without obstruction or gangrene; Z79.899 Other long term (current) drug therapy
CPT/HCPCS: 49650; C1781; J0131; J0360; J0690; J1100; J1885; J2250; J2405; J3010; S2900

== ENCOUNTER → 2021-03-15 | Outpatient (REF) | payer MEDICARE ==
[~2021-03-15] MED LIST changes: -LR 1,000 ML IV ONE; -ceFAZolin SOD 1 GM in D5W MINI-BAG PLUS 50 ML IV ONE
== END ==
LOC: M LAB REF 16:13
PROVIDERS: ATTEND Internal Medicine
DX: Z12.5 Encounter for screening for malignant neoplasm of prostate (principal)

== ENCOUNTER → 2021-05-11 | Outpatient (CLI) | payer MEDICARE ==
--- NOTE | 2021-05-11 13:39 | DEXAMM ---
INDICATION: DISORDER OF BONE DENSITY AND STRUCTURE. COMPARISON: 05/03/2019, 08/01/2007. TECHNIQUE: Bone density was measured using dual-energy x-ray absorptiometry (DEXA). FINDINGS: AP SPINE L1-L4 BMD 1.420 g/cm2 Young Adult T-Score 1.8 Age Matched Z-Score 2.1. LT FEMUR, TOTAL BMD 0.973 g/cm2 Young Adult T-Score -0.3 Age Matched Z-Score 0.0. LT NECK BMD 0.811 g/cm2 Young Adult T-Score -1.6 Age Matched Z-Score -0.6. RT FEMUR, TOTAL BMD 0.927 g/cm2 Young Adult T-Score -0.6 Age Matched Z-Score -0.3. RT NECK BMD 0.780 g/cm2 Young Adult T-Score -1.9 Age Matched Z-Score -0.8. IMPRESSION: There is normal bone density of the spine. 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 There is low bone density of the right hip. The density of the spine has increased 15.0% since the initial exam on 08/01/2007. The density of the spine decreased 3.7% since most recent exam on 05/03/2019. The density of the left hip has decreased 8.0% since initial exam on 08/01/2007. The density of the left hip has decreased 1.2% since most recent exam on 05/03/2019. The density of the right hip has decreased 0.1% since the initial exam on 08/01/2007. The density of the right hip has decreased 0.7% since the most recent exam on 05/03/2019. FOLLOW-UP: Recommendation for the next bone density exam: 2 years. <Electronically signed by Swapnil Ma > 05/11/21 [id number]
== END ==
LOC: M WHC 07:44
PROVIDERS: ATTEND Internal Medicine
DX: M85.851 Other specified disorders of bone density and structure, right thigh (principal); M85.852 Other specified disorders of bone density and structure, left thigh

== ENCOUNTER → 2021-11-17 | Outpatient (CLI) | payer MEDICARE ==
[~2021-11-17] MED LIST changes: -D31000TA2 PO; +ECOT81TA5 PO; +VITA100093 PO
== END ==
LOC: M LABSMTC 09:19
PROVIDERS: ATTEND Anesthesiology
DX: Z20.828 Contact with and (suspected) exposure to other viral communicable diseases (principal); Z11.59 Encounter for screening for other viral diseases

== ENCOUNTER → 2022-01-14 | Outpatient (REF) | payer MEDICARE | LOC: M LAB REF 12:04 | PROVIDERS: ATTEND Physician Assistant Medical | DX: M10.072 Idiopathic gout, left ankle and foot (principal) ==

== ENCOUNTER → 2022-02-06 | Outpatient (CLI) | payer MEDICARE | LOC: M LABSMTC 08:56 | PROVIDERS: ATTEND Anesthesiology | DX: Z01.818 Encounter for other preprocedural examination (principal); Z11.52 Encounter for screening for COVID-19 ==

== ENCOUNTER 2022-02-10 06:59 | Day surgery (SDC) | payer MEDICARE ==
[~2022-02-10] VITALS: Ht 172.7 cm; Wt 81.1 kg
[~2022-02-10 06:59] MED LIST changes: +NS 1,000 ML IV ONE
[2022-02-10] MEDS ORDERED: PROSTATE HEALTH PO (07:41)
[2022-02-10] MEDS ORDERED: ALEN70SO2 PO (07:42)
[2022-02-10 09:15] VITALS: BP 144/95
== END 2022-02-10 09:21 | disposition home or self-care (01) ==
LOC: M OPP 06:59
PROVIDERS: ATTEND Surgery
DX: Z12.11 Encounter for screening for malignant neoplasm of colon (principal); Z86.010 Personal history of colon polyps; K57.30 Diverticulosis of large intestine without perforation or abscess without bleeding; K62.5 Hemorrhage of anus and rectum; E03.9 Hypothyroidism, unspecified; G47.30 Sleep apnea, unspecified; K44.9 Diaphragmatic hernia without obstruction or gangrene; J44.9 Chronic obstructive pulmonary disease, unspecified; Z79.51 Long term (current) use of inhaled steroids; Z79.82 Long term (current) use of aspirin; Z79.899 Other long term (current) drug therapy; Z86.718 Personal history of other venous thrombosis and embolism

== ENCOUNTER → 2022-12-13 | Outpatient (CLI) | payer MEDICARE ==
[~2022-12-13] MED LIST changes: +ALEN70SO2 PO; -NS 1,000 ML IV ONE; +PROSTATE HEALTH PO
== END ==
LOC: M WUC 11:18
PROVIDERS: ATTEND Internal Medicine
DX: R06.02 Shortness of breath (principal); J45.909 Unspecified asthma, uncomplicated

== ENCOUNTER → 2022-12-14 | Outpatient (CLI) | payer MEDICARE ==
[~2022-12-14] MED LIST changes: +ISOVUE-370 76% 100ML VIAL As Ordered ONE
== END ==
LOC: M RAD 09:59
PROVIDERS: ATTEND Internal Medicine
DX: R06.09 Other forms of dyspnea (principal); Z86.711 Personal history of pulmonary embolism
CPT/HCPCS: 71275; Q9967

== ENCOUNTER → 2023-03-21 | Outpatient (CLI) | payer MEDICARE ==
[~2023-03-21] MED LIST changes: -ISOVUE-370 76% 100ML VIAL As Ordered ONE
== END ==
LOC: M PLAIMG 11:07
PROVIDERS: ATTEND Nurse Practitioner Adult Health
DX: R91.8 Other nonspecific abnormal finding of lung field (principal)

== ENCOUNTER → 2023-05-02 | Outpatient (CLI) | payer MEDICARE | LOC: M RAD 10:03 | PROVIDERS: ATTEND Internal Medicine | DX: R59.0 Localized enlarged lymph nodes (principal) ==

== ENCOUNTER → 2023-08-21 | Outpatient (REF) | payer OTHER, MEDICARE ==
[2023-08-21 12:47] LABS: INR 1.18; PARTIAL THROMBOPLASTIN TIME 34.6 SECONDS (24.8-34.2); PROTHROMBIN TIME 14.7 SECONDS (12.5-14.5)
== END ==
LOC: M LAB REF 11:59
PROVIDERS: ATTEND Internal Medicine
DX: Z01.818 Encounter for other preprocedural examination (principal); Z79.01 Long term (current) use of anticoagulants

== ENCOUNTER → 2024-01-11 | Outpatient (REF) | payer OTHER, MEDICARE ==
[2024-01-11 18:45] LABS: C REACTIVE PROTEIN QUANTITATIV 10.2 MG/DL (<1.0)
[2024-01-11 18:46] LABS: URIC ACID 5.7 MG/DL (3.7-9.2)
[2024-01-16 09:38] LABS: ANA PATTERN Nuclear, Speckled (NEGATIVE); ANA SCREEN, IFA POSITIVE (NEGATIVE)
[2024-01-16 22:23] LABS: CYCLIC CITRULLINATED PEPTIDE < 16 UNITS (<20)
== END ==
LOC: M LAB REF 16:35
PROVIDERS: ATTEND Internal Medicine
DX: M10.072 Idiopathic gout, left ankle and foot (principal); M16.11 Unilateral primary osteoarthritis, right hip

== ENCOUNTER → 2024-03-07 | Outpatient (REF) | payer OTHER, MEDICARE | LOC: M LAB REF 12:56 | PROVIDERS: ATTEND Internal Medicine | DX: M06.09 Rheumatoid arthritis without rheumatoid factor, multiple sites (principal); R53.83 Other fatigue ==

== ENCOUNTER → 2025-02-05 | Outpatient (REF) | payer OTHER, MEDICARE | LOC: M LAB REF 17:19 | PROVIDERS: ATTEND Internal Medicine | DX: M06.9 Rheumatoid arthritis, unspecified (principal); D48.5 Neoplasm of uncertain behavior of skin ==

== ENCOUNTER → 2025-05-19 | Outpatient (CLI) | payer MEDICARE | LOC: M RAD 13:32 | PROVIDERS: ATTEND Nurse Practitioner Adult Health | DX: J45.909 Unspecified asthma, uncomplicated (principal) ==